=== PATIENT | female | born 1960 | race African-American/Black ===

== ENCOUNTER 2023-04-14 08:06 | Emergency (ER) | payer BC ==
[2023-04-14 08:24] VITALS: BP 137/91; PULSE 67; RESP 20; TEMP 98.1; BMI 30.7
[2023-04-14] MEDS ORDERED: KETOROLAC TROMETHAMINE 30 MG/1 ML VIAL ONE ×2 (09:03→09:09)
[2023-04-14] MEDS ORDERED: KETOROLAC TROMETHAMINE 30 MG/1 ML VIAL IM ONE (09:15)
== END 2023-04-14 11:19 | disposition home or self-care (01) ==
LOC: FER 08:06
PROC: 3E0233Z Introduction of Anti-inflammatory into Muscle, Percutaneous Approach (ICD-10-PCS; principal; 2023-04-14)
DX: M71.21 Synovial cyst of popliteal space [Baker], right knee (principal); M25.561 Pain in right knee
CPT/HCPCS: 93971-TC; 99284-25